=== PATIENT | female | born 1975 | race Caucasian/White ===

== ENCOUNTER 2017-08-09 22:08 | Emergency (ER) | payer OTHER ==
[2017-08-09] MEDS ORDERED: Ketorolac Tromethamine 30 MG/ML VIAL ONE (22:22)
== END 2017-08-09 22:39 | disposition home or self-care (01) ==
LOC: SCSER 22:08
DX: R05 Cough (principal); K02.9 Dental caries, unspecified; J45.909 Unspecified asthma, uncomplicated
CPT/HCPCS: 96372; J1885

== ENCOUNTER 2017-09-10 19:53 | Emergency (ER) | payer SELFPAY | END 2017-09-10 21:19 | disposition home or self-care (01) | LOC: ERS 19:53 | DX: K02.9 Dental caries, unspecified (principal); J45.909 Unspecified asthma, uncomplicated | CPT/HCPCS: 99282 ==

== ENCOUNTER 2018-06-21 21:30 | Emergency (ER) | payer SELFPAY ==
[2018-06-21] MEDS ORDERED: Albuterol Sulfate 2.5 mg/0.5 ml Neb ONE (21:56)
--- NOTE | 2018-06-21 22:38 | RAD ---
PA AND LATERAL CHEST: 06/21/18 COMPARISON: 09/25/13 study. HISTORY: Cough, history of asthma. Heart size and mediastinum are within normal limits. The lungs are clear of infiltrates. No significa nt bony finding. IMPRESSION: No active intrathoracic disease. POS: [facility]
== END 2018-06-21 22:17 | disposition home or self-care (01) ==
LOC: SCSER 21:30
DX: J20.9 Acute bronchitis, unspecified (principal)
CPT/HCPCS: 71046; 94640; J7611

== ENCOUNTER 2018-06-22 22:04 | Emergency (ER) | payer SELFPAY ==
[2018-06-22] MEDS ORDERED: Ondansetron ODT 8 MG TAB ONE (23:08)
[2018-06-22] MEDS ORDERED: Acetaminophen 500 MG TAB ONE (23:08)
== END 2018-06-22 23:23 | disposition home or self-care (01) ==
LOC: ERS 22:04
DX: J06.9 Acute upper respiratory infection, unspecified (principal); R11.10 Vomiting, unspecified; J45.909 Unspecified asthma, uncomplicated
CPT/HCPCS: 99282